=== PATIENT | female | born 1955 | race Two or more races ===

== ENCOUNTER 2020-12-11 09:00 | Inpatient (IN) | payer OTHER ==
[~2020-12-11] VITALS: Ht 160 cm; Wt 77.1 kg
[2020-12-11] MEDS ORDERED: DEXAMETHASONE SOD PHOS INJ 4 MG/ML VIAL IV ONE (09:45)
[2020-12-11] MEDS ORDERED: DEXAMETHASONE SOD PHOS INJ 4 MG/ML VIAL ONE (10:55)
[2020-12-11] MEDS ORDERED: ACETAMINOPHEN 325 MG TAB ONE (10:56)
[2020-12-11] MEDS: ACETAMINOPHEN 325 MG TAB PO PRN (11:04)
[2020-12-11] MEDS ORDERED: BENZONATATE 100 MG CAP PO PRN (11:45)
[2020-12-11] MEDS ORDERED: GUAIFENESIN/DEXTROMETHORPHAN LIQD 5 ML UDC NG PRN (11:45)
[2020-12-11] MEDS ORDERED: DOCUSATE SODIUM 100 MG CAP PO PRN (11:45)
[2020-12-11] MEDS ORDERED: MIDAZOLAM HCL 2 MG/2 ML VIAL ONE (11:59)
[2020-12-11] MEDS ORDERED: VECURONIUM BROMIDE FOR INJ 20 MG VIAL ONE (11:59)
[2020-12-11] MEDS ORDERED: WATER STERILE 10 ML VIAL ONE (11:59)
[2020-12-11] MEDS ORDERED: ETOMIDATE 2 MG/ML 10 ML INJ IV ONE (11:59)
[2020-12-11] MEDS ORDERED: SUCCINYLCHOLINE CHLORIDE 20 MG/ML 10ML VIAL ONE (11:59)
[2020-12-11 16:42] VITALS: BP 147/77
[2020-12-11] MEDS: ASCORBIC ACID 500 MG TAB PO SCH (17:09)
[2020-12-11] MEDS ORDERED: CEFTRIAXONE 1 GM VIAL IM SCH (17:45)
[2020-12-11] MEDS ORDERED: SODIUM CHLORIDE 0.9% 50ML 50 ML ONE (18:11)
[2020-12-11 18:38] VITALS: BP 147/82
[2020-12-11 18:39] VITALS: BP 147/82
[2020-12-11] MEDS ORDERED: GUAIFENESIN/CODEINE 10 ML CUP NG PRN (18:45)
[2020-12-11 18:58] VITALS: BP 147/82
[2020-12-11] MEDS ORDERED: REMDESIVIR 200MG 200 MG IV ONE (20:00)
[2020-12-11 20:02] VITALS: BP 154/82
[2020-12-11] MEDS ORDERED: ZOLPIDEM TARTRATE 5 MG TAB PO PRN (21:00)
[2020-12-11] MEDS: INSULIN REGULAR, HUMAN 100 UNIT/1 ML SQ SCH (21:00)
[2020-12-11] MEDS ORDERED: INSULIN GLARGINE 100 UNITS/ML VIAL SQ SCH (21:00)
[2020-12-11] MEDS: ENOXAPARIN 30 MG/0.3 ML SYR SC SCH (21:09)
[2020-12-11 22:47] VITALS: BP 150/82
[2020-12-12] VITALS (7 sets, daily range): BP systolic 104–148; BP diastolic 67–79
[2020-12-12 05:37] LABS: HEMATOCRIT 38.7 % (34.2-44.1); HEMOGLOBIN 12.8 g/dL (12.0-16.0); LYMPHOCYTES # (AUTO) 0.7 (1.0-3.2); LYMPHOCYTES % 29.1 % (18.0-39.1); MEAN CORPUSCULAR HEMOGLOBIN 25.2 pg (28-32); MEAN CORPUSCULAR HGB CONC 33.1 g/dL (31-35); MEAN CORPUSCULAR VOLUME 76.3 fL (81-99); MONOCYTES # (AUTO) 0.2 (0.2-0.8); MONOCYTES % 8.3 % (4.4-11.3); NEUTROPHILS # (AUTO) 1.6 (2.1-6.9); NEUTROPHILS % 62.2 % (38.7-80.0); PLATELET COUNT 210 x10e3/uL (140-360); RED BLOOD COUNT 5.07 x10e6/uL (3.6-5.1); RED CELL DISTRIBUTION WIDTH 13.6 % (11.7-14.4)
[2020-12-12 06:44] LABS: ANION GAP 17.2 mmol/L (8-16); CALCIUM 8.4 mg/dL (8.4-10.2); CREATININE, SERUM 0.73 mg/dL (0.57-1.11); MAGNESIUM 2.2 MG/DL (1.3-2.1); PHOSPHORUS 3.3 MG/DL (2.3-4.7); POTASSIUM 3.2 mmol/L (3.5-5.1)
[2020-12-12 07:34] LABS: BILIRUBIN,DIRECT 0.2 mg/dL (0.0-0.5)
[2020-12-12] MEDS: INSULIN REGULAR, HUMAN 100 UNIT/1 ML SQ SCH ×4 (08:18→21:00)
[2020-12-12] MEDS ORDERED: ASCORBIC ACID 500 MG TAB PO SCH (09:00)
[2020-12-12] MEDS ORDERED: ZINC SULFATE 220 MG CAP PO SCH (09:00)
[2020-12-12] MEDS: DEXAMETHASONE SOD PHOS 10 MG/1 ML VIAL IV SCH (09:04)
[2020-12-12] MEDS: CEFTRIAXONE 2 GM in SODIUM CHLORIDE 0.9% 100 ML IV SCH (09:04)
[2020-12-12] MEDS: ASCORBIC ACID 500 MG TAB PO SCH ×2 (09:05→17:07)
[2020-12-12] MEDS: ZINC SULFATE 220 MG CAP PO SCH (09:05)
[2020-12-12] MEDS: ENOXAPARIN 30 MG/0.3 ML SYR SC SCH ×2 (09:05→21:21)
[2020-12-12] MEDS: LOSARTAN POTASSIUM 25 MG TAB PO SCH (09:05)
[2020-12-12 09:12] LABS: LYMPHOCYTES % (MANUAL) 24 % (19-48); MONOCYTES % (MANUAL) 9 % (3.4-9.0); NEUTROPHILS % (MANUAL) 66 % (40-74)
[2020-12-12 09:13] LABS: PLATELET ESTIMATE ADEQUATE; PLATELET MORPHOLOGY COMMENT NORMAL; RBC MORPHOLOGY COMMENT NORMAL
[2020-12-12] MEDS: INSULIN LISPRO 100 UNIT/1 ML 3ML VIAL SQ SCH ×3 (11:44→21:00)
[2020-12-12] MEDS: ACETAMINOPHEN 325 MG TAB PO PRN ×2 (13:25→23:09)
[2020-12-12] MEDS: REMDESIVIR 100MG 100 MG IV SCH (13:54)
[2020-12-12] MEDS: INSULIN GLARGINE 100 UNITS/ML VIAL SQ SCH (21:25)
[2020-12-13] VITALS (9 sets, daily range): BP systolic 134–172; BP diastolic 71–91
[2020-12-13 07:08] LABS: BASOPHILS % 0.1 % (0.0-1.0); HEMATOCRIT 40.2 % (34.2-44.1); HEMOGLOBIN 13.1 g/dL (12.0-16.0); LYMPHOCYTES # (AUTO) 1.1 (1.0-3.2); LYMPHOCYTES % 13.5 % (18.0-39.1); MEAN CORPUSCULAR HEMOGLOBIN 25.2 pg (28-32); MEAN CORPUSCULAR HGB CONC 32.6 g/dL (31-35); MEAN CORPUSCULAR VOLUME 77.5 fL (81-99); MONOCYTES # (AUTO) 0.5 (0.2-0.8); MONOCYTES % 5.7 % (4.4-11.3); NEUTROPHILS # (AUTO) 6.8 (2.1-6.9); NEUTROPHILS % 80.2 % (38.7-80.0); PLATELET COUNT 239 x10e3/uL (140-360); RED BLOOD COUNT 5.19 x10e6/uL (3.6-5.1)
[2020-12-13 07:29] LABS: ALBUMIN 2.8 g/dL (3.5-5.0); ALBUMIN/GLOBULIN RATIO 0.8 (0.8-2.0); ANION GAP 16.1 mmol/L (8-16); CALCIUM 8.3 mg/dL (8.4-10.2); CREATININE, SERUM 0.68 mg/dL (0.57-1.11); POTASSIUM 3.1 mmol/L (3.5-5.1)
[2020-12-13 07:55] LABS: MAGNESIUM 2.1 MG/DL (1.3-2.1); PHOSPHORUS 2.9 MG/DL (2.3-4.7)
[2020-12-13] MEDS: INSULIN LISPRO 100 UNIT/1 ML 3ML VIAL SQ SCH ×4 (08:02→21:00)
[2020-12-13] MEDS: INSULIN REGULAR, HUMAN 100 UNIT/1 ML SQ SCH ×4 (08:03→21:06)
[2020-12-13] MEDS: DEXAMETHASONE SOD PHOS 10 MG/1 ML VIAL IV SCH (09:51)
[2020-12-13] MEDS: LOSARTAN POTASSIUM 25 MG TAB PO SCH (09:51)
[2020-12-13] MEDS: CEFTRIAXONE 2 GM in SODIUM CHLORIDE 0.9% 100 ML IV SCH (09:51)
[2020-12-13] MEDS: ENOXAPARIN 30 MG/0.3 ML SYR SC SCH ×2 (09:52→21:08)
[2020-12-13] MEDS: ASCORBIC ACID 500 MG TAB PO SCH ×2 (09:52→17:12)
[2020-12-13] MEDS: ZINC SULFATE 220 MG CAP PO SCH (09:52)
[2020-12-13] MEDS ORDERED: POTASSIUM CHLORIDE 20 MEQ TAB CR PO ONE (12:14)
[2020-12-13] MEDS: REMDESIVIR 100MG 100 MG IV SCH (14:11)
[2020-12-13 15:14] LABS: FERRITIN 179.81 ng/mL (4.63-204.00)
[2020-12-13] MEDS: DEXTROSE 50% SYRINGE 50 ML IV PRN (15:55)
[2020-12-13] MEDS: ACETAMINOPHEN 325 MG TAB PO PRN (19:04)
[2020-12-13] MEDS: INSULIN GLARGINE 100 UNITS/ML VIAL SQ SCH (21:06)
[2020-12-14] VITALS (8 sets, daily range): BP systolic 147–163; BP diastolic 78–92
[2020-12-14] MEDS: INSULIN REGULAR, HUMAN 100 UNIT/1 ML SQ SCH ×5 (07:30→21:48)
[2020-12-14] MEDS: INSULIN LISPRO 100 UNIT/1 ML 3ML VIAL SQ SCH ×4 (07:30→19:32)
[2020-12-14] MEDS ORDERED: SODIUM CHLORIDE 0.9% 100 ML ONE (07:33)
[2020-12-14] MEDS: DEXAMETHASONE SOD PHOS 10 MG/1 ML VIAL IV SCH (09:42)
[2020-12-14] MEDS: ENOXAPARIN 30 MG/0.3 ML SYR SC SCH ×2 (09:43→21:42)
[2020-12-14] MEDS: ASCORBIC ACID 500 MG TAB PO SCH ×2 (09:43→16:33)
[2020-12-14] MEDS: ZINC SULFATE 220 MG CAP PO SCH (09:43)
[2020-12-14] MEDS: LOSARTAN POTASSIUM 25 MG TAB PO SCH (09:43)
[2020-12-14] MEDS: CEFTRIAXONE 2 GM in SODIUM CHLORIDE 0.9% 100 ML IV SCH (09:43)
[2020-12-14 10:06] LABS: ALBUMIN 2.7 g/dL (3.5-5.0); ALBUMIN/GLOBULIN RATIO 0.8 (0.8-2.0); ANION GAP 14.2 mmol/L (8-16); CREATININE, SERUM 0.59 mg/dL (0.57-1.11); POTASSIUM 3.2 mmol/L (3.5-5.1)
[2020-12-14] MEDS: ONDANSETRON HCL INJ 2MG/ML 2ML 2 MG/ML VIAL IV PRN (10:24)
[2020-12-14] MEDS: REMDESIVIR 100MG 100 MG IV SCH (13:17)
[2020-12-14] MEDS ORDERED: POTASSIUM CHLORIDE 20 MEQ TAB CR PO ONE (14:00)
[2020-12-14] MEDS: ACETAMINOPHEN 325 MG TAB PO PRN (18:11)
[2020-12-14] MEDS: INSULIN GLARGINE 100 UNITS/ML VIAL SQ SCH (21:43)
[2020-12-15] VITALS (8 sets, daily range): BP systolic 111–171; BP diastolic 69–91
[2020-12-15] MEDS: INSULIN LISPRO 100 UNIT/1 ML 3ML VIAL SQ SCH ×4 (07:30→21:31)
[2020-12-15] MEDS: ASCORBIC ACID 500 MG TAB PO SCH ×2 (08:48→17:16)
[2020-12-15] MEDS: CEFTRIAXONE 2 GM in SODIUM CHLORIDE 0.9% 100 ML IV SCH (08:48)
[2020-12-15] MEDS: LOSARTAN POTASSIUM 25 MG TAB PO SCH (08:48)
[2020-12-15] MEDS: DEXAMETHASONE SOD PHOS 10 MG/1 ML VIAL IV SCH (08:48)
[2020-12-15] MEDS: ENOXAPARIN 30 MG/0.3 ML SYR SC SCH ×2 (08:49→21:20)
[2020-12-15] MEDS: ZINC SULFATE 220 MG CAP PO SCH (08:49)
[2020-12-15 10:13] LABS: ALBUMIN 2.8 g/dL (3.5-5.0); ALBUMIN/GLOBULIN RATIO 0.8 (0.8-2.0); ANION GAP 15.6 mmol/L (8-16); CREATININE, SERUM 0.6 mg/dL (0.57-1.11); POTASSIUM 3.6 mmol/L (3.5-5.1)
[2020-12-15] MEDS: INSULIN REGULAR, HUMAN 100 UNIT/1 ML SQ SCH ×3 (11:30→21:33)
[2020-12-15] MEDS ORDERED: SODIUM CHLORIDE 0.9% 100 ML ONE (15:35)
[2020-12-15] MEDS ORDERED: IOPAMIDOL 370 MG/ML 200 ML INFUS..BTL INJ ONE (15:35)
[2020-12-15] MEDS: REMDESIVIR 100MG 100 MG IV SCH (16:07)
[2020-12-15] MEDS: INSULIN GLARGINE 100 UNITS/ML VIAL SQ SCH (21:35)
[2020-12-16] VITALS (8 sets, daily range): BP systolic 134–171; BP diastolic 62–87
[2020-12-16] MEDS ORDERED: LORAZEPAM INJ 2 MG/ML VIAL IV ONE ×2 (01:00→22:15)
[2020-12-16] MEDS: INSULIN LISPRO 100 UNIT/1 ML 3ML VIAL SQ SCH ×4 (07:30→20:22)
[2020-12-16] MEDS: INSULIN REGULAR, HUMAN 100 UNIT/1 ML SQ SCH ×4 (07:30→20:25)
[2020-12-16] MEDS: CEFTRIAXONE 2 GM in SODIUM CHLORIDE 0.9% 100 ML IV SCH (09:33)
[2020-12-16] MEDS: DEXAMETHASONE SOD PHOS 10 MG/1 ML VIAL IV SCH (09:33)
[2020-12-16] MEDS: LOSARTAN POTASSIUM 25 MG TAB PO SCH (09:34)
[2020-12-16] MEDS: ZINC SULFATE 220 MG CAP PO SCH (09:34)
[2020-12-16] MEDS: ASCORBIC ACID 500 MG TAB PO SCH ×2 (09:34→17:00)
[2020-12-16] MEDS: ENOXAPARIN 30 MG/0.3 ML SYR SC SCH ×2 (09:34→20:22)
[2020-12-16 09:47] LABS: ALBUMIN 2.5 g/dL (3.5-5.0); ALBUMIN/GLOBULIN RATIO 0.8 (0.8-2.0); ANION GAP 13.6 mmol/L (8-16); CALCIUM 7.9 mg/dL (8.4-10.2); CREATININE, SERUM 0.56 mg/dL (0.57-1.11); POTASSIUM 3.6 mmol/L (3.5-5.1)
[2020-12-16] MEDS: INSULIN GLARGINE 100 UNITS/ML VIAL SQ SCH (20:24)
[2020-12-17] VITALS (8 sets, daily range): BP systolic 129–155; BP diastolic 64–88
[2020-12-17] MEDS: INSULIN LISPRO 100 UNIT/1 ML 3ML VIAL SQ SCH ×4 (07:30→20:31)
[2020-12-17] MEDS: INSULIN REGULAR, HUMAN 100 UNIT/1 ML SQ SCH ×4 (07:30→20:31)
[2020-12-17] MEDS: LOSARTAN POTASSIUM 25 MG TAB PO SCH (09:00)
[2020-12-17] MEDS ORDERED: BARICITINIB 2 MG TABLET PO SCH (09:00)
[2020-12-17] MEDS: ZINC SULFATE 220 MG CAP PO SCH (09:00)
[2020-12-17] MEDS: ASCORBIC ACID 500 MG TAB PO SCH ×2 (09:00→16:45)
[2020-12-17] MEDS: DEXAMETHASONE SOD PHOS 10 MG/1 ML VIAL IV SCH (09:30)
[2020-12-17] MEDS: ENOXAPARIN 30 MG/0.3 ML SYR SC SCH ×2 (09:30→20:29)
[2020-12-17 09:32] LABS: ALBUMIN 2.7 g/dL (3.5-5.0); ALBUMIN/GLOBULIN RATIO 0.8 (0.8-2.0); ANION GAP 14.5 mmol/L (8-16); CALCIUM 8.3 mg/dL (8.4-10.2); CREATININE, SERUM 0.6 mg/dL (0.57-1.11); POTASSIUM 3.5 mmol/L (3.5-5.1)
[2020-12-17] MEDS ORDERED: LORAZEPAM INJ 2 MG/ML VIAL IV PRN (11:15)
[2020-12-17] MEDS: CLONIDINE HCL 0.2 MG/24 HR 1 EA PATCH TOP SCH (14:19)
[2020-12-17] MEDS: BARICITINIB 2 MG TABLET PO SCH (16:45)
[2020-12-17] MEDS: ACETAMINOPHEN 325 MG TAB PO PRN (18:12)
[2020-12-17] MEDS: INSULIN GLARGINE 100 UNITS/ML VIAL SQ SCH (20:33)
[2020-12-18] VITALS (8 sets, daily range): BP systolic 151–183; BP diastolic 72–94
[2020-12-18 05:39] LABS: BASOPHILS % 0.2 % (0.0-1.0); HEMATOCRIT 37.5 % (34.2-44.1); HEMOGLOBIN 12.2 g/dL (12.0-16.0); LYMPHOCYTES # (AUTO) 1.1 (1.0-3.2); LYMPHOCYTES % 17.3 % (18.0-39.1); MEAN CORPUSCULAR HEMOGLOBIN 25.2 pg (28-32); MEAN CORPUSCULAR HGB CONC 32.5 g/dL (31-35); MEAN CORPUSCULAR VOLUME 77.3 fL (81-99); MONOCYTES # (AUTO) 0.3 (0.2-0.8); MONOCYTES % 4.7 % (4.4-11.3); NEUTROPHILS # (AUTO) 4.8 (2.1-6.9); NEUTROPHILS % 74.5 % (38.7-80.0); PLATELET COUNT 342 x10e3/uL (140-360); RED BLOOD COUNT 4.85 x10e6/uL (3.6-5.1); RED CELL DISTRIBUTION WIDTH 14.3 % (11.7-14.4)
[2020-12-18 05:56] LABS: ANION GAP 14.4 mmol/L (8-16); CREATININE, SERUM 0.6 mg/dL (0.57-1.11); POTASSIUM 3.4 mmol/L (3.5-5.1)
[2020-12-18 06:29] LABS: ALBUMIN 2.4 g/dL (3.5-5.0); BILIRUBIN,DIRECT 0.4 mg/dL (0.0-0.5); PHOSPHORUS 3.2 MG/DL (2.3-4.7)
[2020-12-18 07:17] LABS: ALBUMIN 2.3 g/dL (3.5-5.0); ALBUMIN/GLOBULIN RATIO 0.6 (0.8-2.0); ANION GAP 13.5 mmol/L (8-16); CREATININE, SERUM 0.61 mg/dL (0.57-1.11); POTASSIUM 3.5 mmol/L (3.5-5.1)
[2020-12-18] MEDS: INSULIN LISPRO 100 UNIT/1 ML 3ML VIAL SQ SCH ×4 (07:30→20:21)
[2020-12-18] MEDS: DEXAMETHASONE SOD PHOS 10 MG/1 ML VIAL IV SCH (09:26)
[2020-12-18] MEDS: ASCORBIC ACID 500 MG TAB PO SCH ×2 (09:27→16:54)
[2020-12-18] MEDS: ZINC SULFATE 220 MG CAP PO SCH (09:27)
[2020-12-18] MEDS: ENOXAPARIN 30 MG/0.3 ML SYR SC SCH (09:27)
[2020-12-18] MEDS: LOSARTAN POTASSIUM 25 MG TAB PO SCH (09:27)
[2020-12-18] MEDS: BARICITINIB 2 MG TABLET PO SCH (09:27)
[2020-12-18] MEDS: INSULIN REGULAR, HUMAN 100 UNIT/1 ML SQ SCH ×4 (11:30→20:20)
[2020-12-18] MEDS: PIPERACILLIN/TAZOBACTAM 3.375 GM in SODIUM CHLORIDE 0.9% 50ML 50 ML IV SCH ×2 (11:59→16:54)
[2020-12-18] MEDS: LABETALOL HCL 5 MG/ML 20ML VIAL IV PRN ×2 (12:20→17:06)
[2020-12-18] MEDS: ACETAMINOPHEN 325 MG TAB PO PRN (17:06)
[2020-12-18] MEDS: INSULIN GLARGINE 100 UNITS/ML VIAL SQ SCH (20:19)
[2020-12-19] VITALS (8 sets, daily range): BP systolic 127–165; BP diastolic 64–98
[2020-12-19] MEDS: PIPERACILLIN/TAZOBACTAM 3.375 GM in SODIUM CHLORIDE 0.9% 50ML 50 ML IV SCH ×5 (00:03→23:52)
[2020-12-19] MEDS: ACETAMINOPHEN 325 MG TAB PO PRN (06:01)
[2020-12-19] MEDS: INSULIN REGULAR, HUMAN 100 UNIT/1 ML SQ SCH ×4 (08:53→20:34)
[2020-12-19] MEDS: INSULIN LISPRO 100 UNIT/1 ML 3ML VIAL SQ SCH ×4 (08:53→20:34)
[2020-12-19] MEDS: BARICITINIB 2 MG TABLET PO SCH (08:54)
[2020-12-19] MEDS: ZINC SULFATE 220 MG CAP PO SCH (08:54)
[2020-12-19] MEDS: LOSARTAN POTASSIUM 25 MG TAB PO SCH (08:54)
[2020-12-19] MEDS: ASCORBIC ACID 500 MG TAB PO SCH ×2 (08:54→17:07)
[2020-12-19] MEDS: INSULIN GLARGINE 100 UNITS/ML VIAL SQ SCH (20:33)
[2020-12-19] MEDS: DEXTROSE 50% SYRINGE 50 ML IV PRN (20:37)
[2020-12-19] MEDS: ENOXAPARIN 30 MG/0.3 ML SYR SC SCH (21:35)
[2020-12-20] VITALS (7 sets, daily range): BP systolic 134–181; BP diastolic 61–91
[2020-12-20] MEDS: LABETALOL HCL 5 MG/ML 20ML VIAL IV PRN (00:36)
[2020-12-20] MEDS: PIPERACILLIN/TAZOBACTAM 3.375 GM in SODIUM CHLORIDE 0.9% 50ML 50 ML IV SCH ×3 (06:30→17:27)
[2020-12-20] MEDS: INSULIN LISPRO 100 UNIT/1 ML 3ML VIAL SQ SCH ×4 (07:30→21:00)
[2020-12-20] MEDS: INSULIN REGULAR, HUMAN 100 UNIT/1 ML SQ SCH ×4 (07:30→21:00)
[2020-12-20] MEDS: DEXAMETHASONE 4 MG TAB PO SCH (08:52)
[2020-12-20] MEDS: LOSARTAN POTASSIUM 25 MG TAB PO SCH (08:53)
[2020-12-20] MEDS: BARICITINIB 2 MG TABLET PO SCH (08:53)
[2020-12-20] MEDS: ENOXAPARIN 30 MG/0.3 ML SYR SC SCH ×2 (08:53→21:41)
[2020-12-20] MEDS: ZINC SULFATE 220 MG CAP PO SCH (08:53)
[2020-12-20] MEDS: ASCORBIC ACID 500 MG TAB PO SCH ×2 (08:53→17:27)
[2020-12-20 10:19] LABS: BASOPHILS % 0.2 % (0.0-1.0); EOSINOPHILS % 0.2 % (0.0-6.0); HEMATOCRIT 38.8 % (34.2-44.1); HEMOGLOBIN 12.5 g/dL (12.0-16.0); LYMPHOCYTES # (AUTO) 0.5 (1.0-3.2); LYMPHOCYTES % 3.9 % (18.0-39.1); MEAN CORPUSCULAR HEMOGLOBIN 25.4 pg (28-32); MEAN CORPUSCULAR HGB CONC 32.2 g/dL (31-35); MEAN CORPUSCULAR VOLUME 78.9 fL (81-99); MONOCYTES # (AUTO) 0.2 (0.2-0.8); MONOCYTES % 1.8 % (4.4-11.3); NEUTROPHILS # (AUTO) 11.6 (2.1-6.9); NEUTROPHILS % 92.4 % (38.7-80.0); PLATELET COUNT 281 x10e3/uL (140-360); RED BLOOD COUNT 4.92 x10e6/uL (3.6-5.1); RED CELL DISTRIBUTION WIDTH 14.6 % (11.7-14.4)
[2020-12-20 10:35] LABS: ANION GAP 16.3 mmol/L (8-16); CALCIUM 8.1 mg/dL (8.4-10.2); CREATININE, SERUM 0.67 mg/dL (0.57-1.11); POTASSIUM 3.3 mmol/L (3.5-5.1)
[2020-12-20] MEDS: VENLAFAXINE HCL 37.5 MG TAB PO SCH (16:17)
[2020-12-20] MEDS ORDERED: FUROSEMIDE INJ 10 MG/ML 2 ML VIAL IV ONE (20:30)
[2020-12-21] VITALS (9 sets, daily range): BP systolic 137–165; BP diastolic 63–83
[2020-12-21] MEDS: PIPERACILLIN/TAZOBACTAM 3.375 GM in SODIUM CHLORIDE 0.9% 50ML 50 ML IV SCH ×6 (06:23→23:55)
[2020-12-21] MEDS: INSULIN REGULAR, HUMAN 100 UNIT/1 ML SQ SCH ×4 (07:14→21:00)
[2020-12-21] MEDS: INSULIN LISPRO 100 UNIT/1 ML 3ML VIAL SQ SCH ×4 (07:15→21:00)
[2020-12-21] MEDS: BARICITINIB 2 MG TABLET PO SCH (07:45)
[2020-12-21] MEDS: ZINC SULFATE 220 MG CAP PO SCH (07:45)
[2020-12-21] MEDS: ENOXAPARIN 30 MG/0.3 ML SYR SC SCH ×2 (07:45→21:45)
[2020-12-21] MEDS: DEXAMETHASONE 4 MG TAB PO SCH (07:45)
[2020-12-21] MEDS: ASCORBIC ACID 500 MG TAB PO SCH ×2 (07:45→17:27)
[2020-12-21] MEDS: VENLAFAXINE HCL 37.5 MG TAB PO SCH ×2 (07:45→17:27)
[2020-12-21] MEDS: LOSARTAN POTASSIUM 25 MG TAB PO SCH (07:45)
[2020-12-21] MEDS: ONDANSETRON HCL INJ 2MG/ML 2ML 2 MG/ML VIAL IV PRN (10:04)
[2020-12-22] VITALS (16 sets, daily range): BP systolic 132–197; BP diastolic 61–92
[2020-12-22] MEDS: PIPERACILLIN/TAZOBACTAM 3.375 GM in SODIUM CHLORIDE 0.9% 50ML 50 ML IV SCH ×4 (06:00→23:35)
[2020-12-22 06:31] LABS: BASOPHILS % 0.1 % (0.0-1.0); HEMATOCRIT 34.3 % (34.2-44.1); HEMOGLOBIN 11.5 g/dL (12.0-16.0); LYMPHOCYTES # (AUTO) 0.6 (1.0-3.2); LYMPHOCYTES % 4.2 % (18.0-39.1); MEAN CORPUSCULAR HEMOGLOBIN 25.7 pg (28-32); MEAN CORPUSCULAR HGB CONC 33.5 g/dL (31-35); MEAN CORPUSCULAR VOLUME 76.7 fL (81-99); MONOCYTES # (AUTO) 0.4 (0.2-0.8); MONOCYTES % 3.1 % (4.4-11.3); NEUTROPHILS # (AUTO) 12.3 (2.1-6.9); NEUTROPHILS % 91.1 % (38.7-80.0); PLATELET COUNT 286 x10e3/uL (140-360); RED BLOOD COUNT 4.47 x10e6/uL (3.6-5.1); RED CELL DISTRIBUTION WIDTH 13.9 % (11.7-14.4)
[2020-12-22] MEDS: INSULIN REGULAR, HUMAN 100 UNIT/1 ML SQ SCH ×4 (07:30→20:43)
[2020-12-22] MEDS: INSULIN LISPRO 100 UNIT/1 ML 3ML VIAL SQ SCH ×4 (07:30→20:43)
[2020-12-22 08:47] LABS: ANION GAP 13.4 mmol/L (8-16); CALCIUM 8.3 mg/dL (8.4-10.2); CREATININE, SERUM 0.59 mg/dL (0.57-1.11); POTASSIUM 3.4 mmol/L (3.5-5.1)
[2020-12-22] MEDS: BARICITINIB 2 MG TABLET PO SCH (10:01)
[2020-12-22] MEDS: LOSARTAN POTASSIUM 25 MG TAB PO SCH (10:01)
[2020-12-22] MEDS: ZINC SULFATE 220 MG CAP PO SCH (10:01)
[2020-12-22] MEDS: ASCORBIC ACID 500 MG TAB PO SCH ×2 (10:01→16:49)
[2020-12-22] MEDS: DEXAMETHASONE 4 MG TAB PO SCH (10:01)
[2020-12-22] MEDS: ENOXAPARIN 30 MG/0.3 ML SYR SC SCH ×2 (10:01→20:42)
[2020-12-22] MEDS: VENLAFAXINE HCL 37.5 MG TAB PO SCH ×2 (10:01→16:49)
[2020-12-22 15:37] LABS: ABG HCO3 31 mmol/L (22-26); ABG PCO2 42 mmHg (35-45); ABG PH 7.47 (7.35-7.45); ABG PO2 52 mmHg (80-105); ABG TCO2 32
[2020-12-22] MEDS ORDERED: DEXTROSE 5%/0.9% SOD CHL 1,000 ML IV ONE (16:30)
[2020-12-22] MEDS ORDERED: ALTEPLASE RECOMBINANT 2 MG/2 ML VIAL IV PRN (17:15)
[2020-12-22] MEDS ORDERED: DEXTROSE 50% SYRINGE 50 ML IV ONE (20:39)
[2020-12-22] MEDS: LABETALOL HCL 5 MG/ML 20ML VIAL IV PRN (22:33)
[2020-12-22] MEDS: ACETAMINOPHEN 325 MG TAB PO PRN (23:35)
[2020-12-23] VITALS (25 sets, daily range): BP systolic 109–170; BP diastolic 61–120
[2020-12-23] MEDS: PIPERACILLIN/TAZOBACTAM 3.375 GM in SODIUM CHLORIDE 0.9% 50ML 50 ML IV SCH ×2 (05:34→13:19)
[2020-12-23 05:36] LABS: BASOPHILS % 0.1 % (0.0-1.0); HEMATOCRIT 29.4 % (34.2-44.1); HEMOGLOBIN 9.5 g/dL (12.0-16.0); LYMPHOCYTES # (AUTO) 0.4 (1.0-3.2); LYMPHOCYTES % 2.7 % (18.0-39.1); MEAN CORPUSCULAR HEMOGLOBIN 25.3 pg (28-32); MEAN CORPUSCULAR HGB CONC 32.3 g/dL (31-35); MEAN CORPUSCULAR VOLUME 78.2 fL (81-99); MONOCYTES # (AUTO) 0.4 (0.2-0.8); NEUTROPHILS # (AUTO) 13.8 (2.1-6.9); NEUTROPHILS % 93.1 % (38.7-80.0); PLATELET COUNT 208 x10e3/uL (140-360); RED BLOOD COUNT 3.76 x10e6/uL (3.6-5.1); RED CELL DISTRIBUTION WIDTH 14.2 % (11.7-14.4)
[2020-12-23 07:04] LABS: ALBUMIN 1.5 g/dL (3.5-5.0); ALBUMIN/GLOBULIN RATIO 0.4 (0.8-2.0); ANION GAP 13.3 mmol/L (8-16); CALCIUM 7.6 mg/dL (8.4-10.2); CREATININE, SERUM 0.61 mg/dL (0.57-1.11); POTASSIUM 3.3 mmol/L (3.5-5.1)
[2020-12-23] MEDS: INSULIN LISPRO 100 UNIT/1 ML 3ML VIAL SQ SCH ×4 (07:30→21:00)
[2020-12-23] MEDS: INSULIN REGULAR, HUMAN 100 UNIT/1 ML SQ SCH (07:30)
[2020-12-23] MEDS: DEXAMETHASONE 4 MG TAB PO SCH (07:42)
[2020-12-23] MEDS: VENLAFAXINE HCL 37.5 MG TAB PO SCH ×2 (09:00→17:16)
[2020-12-23] MEDS: LOSARTAN POTASSIUM 25 MG TAB PO SCH (09:25)
[2020-12-23] MEDS: BARICITINIB 2 MG TABLET PO SCH (09:26)
[2020-12-23] MEDS: ZINC SULFATE 220 MG CAP PO SCH (09:26)
[2020-12-23] MEDS: ASCORBIC ACID 500 MG TAB PO SCH ×2 (09:26→17:16)
[2020-12-23] MEDS: ENOXAPARIN 30 MG/0.3 ML SYR SC SCH ×2 (09:27→21:00)
[2020-12-23] MEDS ORDERED: DEXTROSE 50% SYRINGE 50 ML IV PRN (09:45)
[2020-12-24] VITALS (25 sets, daily range): BP systolic 116–178; BP diastolic 63–97
[2020-12-24] MEDS ORDERED: DEXMEDETOMIDINE 100 ML IV PRN (06:45)
[2020-12-24] MEDS ORDERED: FUROSEMIDE INJ 10 MG/ML 2 ML VIAL IV ONE (07:20)
[2020-12-24] MEDS: INSULIN LISPRO 100 UNIT/1 ML 3ML VIAL SQ SCH ×4 (07:30→21:41)
[2020-12-24 08:05] LABS: BASOPHILS # (AUTO) 0.1 (0.0-0.1); BASOPHILS % 0.2 % (0.0-1.0); HEMATOCRIT 36.5 % (34.2-44.1); HEMOGLOBIN 11.9 g/dL (12.0-16.0); LYMPHOCYTES # (AUTO) 0.6 (1.0-3.2); LYMPHOCYTES % 2.5 % (18.0-39.1); MEAN CORPUSCULAR HEMOGLOBIN 25.6 pg (28-32); MEAN CORPUSCULAR HGB CONC 32.6 g/dL (31-35); MEAN CORPUSCULAR VOLUME 78.5 fL (81-99); MONOCYTES # (AUTO) 0.5 (0.2-0.8); NEUTROPHILS # (AUTO) 23.6 (2.1-6.9); NEUTROPHILS % 93.9 % (38.7-80.0); PLATELET COUNT 244 x10e3/uL (140-360); RED BLOOD COUNT 4.65 x10e6/uL (3.6-5.1); RED CELL DISTRIBUTION WIDTH 14.3 % (11.7-14.4)
[2020-12-24 08:22] LABS: ANION GAP 15.7 mmol/L (8-16); CALCIUM 8.1 mg/dL (8.4-10.2); CREATININE, SERUM 0.52 mg/dL (0.57-1.11); POTASSIUM 3.7 mmol/L (3.5-5.1)
[2020-12-24 08:38] LABS: ABG HCO3 28 mmol/L (22-26); ABG PCO2 39 mmHg (35-45); ABG PH 7.46 (7.35-7.45); ABG PO2 48 mmHg (80-105); ABG TCO2 29
[2020-12-24] MEDS: DEXAMETHASONE 4 MG TAB PO SCH (08:48)
[2020-12-24] MEDS: ZINC SULFATE 220 MG CAP PO SCH (09:11)
[2020-12-24] MEDS: LOSARTAN POTASSIUM 25 MG TAB PO SCH (09:11)
[2020-12-24] MEDS: BARICITINIB 2 MG TABLET PO SCH (09:11)
[2020-12-24] MEDS: VENLAFAXINE HCL 37.5 MG TAB PO SCH ×2 (09:11→17:56)
[2020-12-24] MEDS: ENOXAPARIN 30 MG/0.3 ML SYR SC SCH ×2 (09:11→21:39)
[2020-12-24] MEDS: ASCORBIC ACID 500 MG TAB PO SCH ×2 (09:11→17:56)
[2020-12-24 09:14] LABS: LYMPHOCYTES % (MANUAL) 3 % (19-48); MONOCYTES % (MANUAL) 1 % (3.4-9.0); NEUTROPHILS % (MANUAL) 96 % (40-74)
[2020-12-24 09:15] LABS: PLATELET ESTIMATE ADEQUATE; PLATELET MORPHOLOGY COMMENT NORMAL; RBC MORPHOLOGY COMMENT NORMAL
[2020-12-24] MEDS: CLONIDINE HCL 0.2 MG/24 HR 1 EA PATCH TOP SCH (12:50)
[2020-12-25] VITALS (23 sets, daily range): BP systolic 81–208; BP diastolic 43–109
[2020-12-25] MEDS ORDERED: Vancomycin IV 1 GM in SODIUM CHLORIDE 0.9% 250ML 250 ML IV ONE (01:15)
[2020-12-25 01:25] LABS: ABG PCO2 45 mmHg (35-45); ABG PH 7.45 (7.35-7.45)
[2020-12-25 01:26] LABS: ABG HCO3 31 mmol/L (22-26); ABG PO2 46 mmHg (80-105); ABG TCO2 33
[2020-12-25] MEDS: FENTANYL 2000MCG/NS 250 250 ML IV SCH ×4 (01:45→16:35)
[2020-12-25] MEDS ORDERED: PIPERACILLIN/TAZO 4.5 GM 100 ML IV ONE (03:30)
[2020-12-25] MEDS: PIPERACILLIN/TAZOBACTAM 4.5 GM in SODIUM CHLORIDE 0.9% 100 ML IV SCH ×3 (04:34→18:00)
[2020-12-25 06:34] LABS: BASOPHILS % 0.1 % (0.0-1.0); EOSINOPHILS % 0.1 % (0.0-6.0); HEMATOCRIT 33.9 % (34.2-44.1); HEMOGLOBIN 10.9 g/dL (12.0-16.0); LYMPHOCYTES # (AUTO) 0.6 (1.0-3.2); MEAN CORPUSCULAR HEMOGLOBIN 25.6 pg (28-32); MEAN CORPUSCULAR HGB CONC 32.2 g/dL (31-35); MEAN CORPUSCULAR VOLUME 79.6 fL (81-99); MONOCYTES # (AUTO) 0.4 (0.2-0.8); MONOCYTES % 2.1 % (4.4-11.3); NEUTROPHILS # (AUTO) 17.1 (2.1-6.9); NEUTROPHILS % 93.2 % (38.7-80.0); PLATELET COUNT 200 x10e3/uL (140-360); RED BLOOD COUNT 4.26 x10e6/uL (3.6-5.1); RED CELL DISTRIBUTION WIDTH 14.6 % (11.7-14.4)
[2020-12-25 07:00] LABS: ALBUMIN 1.5 g/dL (3.5-5.0); ALBUMIN/GLOBULIN RATIO 0.4 (0.8-2.0); ANION GAP 13.7 mmol/L (8-16); CALCIUM 7.9 mg/dL (8.4-10.2); CREATININE, SERUM 0.52 mg/dL (0.57-1.11); POTASSIUM 3.7 mmol/L (3.5-5.1)
[2020-12-25] MEDS: INSULIN LISPRO 100 UNIT/1 ML 3ML VIAL SQ SCH ×3 (07:30→16:28)
[2020-12-25] MEDS: DEXAMETHASONE 4 MG TAB PO SCH (07:30)
[2020-12-25 07:54] LABS: ABG HCO3 30 mmol/L (22-26); ABG PCO2 55 mmHg (35-45); ABG PH 7.34 (7.35-7.45); ABG PO2 65 mmHg (80-105); ABG TCO2 31
[2020-12-25] MEDS: ROCURONIUM 1250MG/NS 250 250 ML IV SCH ×3 (08:12→16:34)
[2020-12-25] MEDS: MIDAZOLAM HCL 5MG/ML 10ML VIAL 100 ML IV PRN ×3 (08:24→19:00)
[2020-12-25] MEDS: LABETALOL HCL 5 MG/ML 20ML VIAL IV PRN (08:49)
[2020-12-25] MEDS: SODIUM CHLORIDE 0.9% 1000ML 1,000 ML IV SCH ×2 (08:53→15:32)
[2020-12-25] MEDS: ASCORBIC ACID 500 MG TAB PO SCH ×2 (09:00→18:00)
[2020-12-25] MEDS: VENLAFAXINE HCL 37.5 MG TAB PO SCH ×2 (09:00→18:00)
[2020-12-25] MEDS: LOSARTAN POTASSIUM 25 MG TAB PO SCH (09:00)
[2020-12-25] MEDS: ZINC SULFATE 220 MG CAP PO SCH (09:00)
[2020-12-25 10:06] LABS: ABG HCO3 28 mmol/L (22-26); ABG PCO2 72 mmHg (35-45); ABG PH 7.19 (7.35-7.45); ABG PO2 120 mmHg (80-105); ABG TCO2 30
[2020-12-25] MEDS ORDERED: SODIUM BICARBONATE 8.4% INJ 50 ML SYR IV ONE (11:15)
[2020-12-25] MEDS ORDERED: CITRIC ACID/SODIUM CITRATE 30 ML UDC PO ONE (11:15)
[2020-12-25 14:24] LABS: ABG HCO3 26 mmol/L (22-26); ABG PCO2 79 mmHg (35-45); ABG PH 7.12 (7.35-7.45); ABG PO2 112 mmHg (80-105); ABG TCO2 28
[2020-12-25] MEDS: ENOXAPARIN 30 MG/0.3 ML SYR SC SCH ×2 (15:29→20:37)
[2020-12-26] VITALS (25 sets, daily range): BP systolic 102–147; BP diastolic 56–73
[2020-12-26] MEDS: FENTANYL 2000MCG/NS 250 250 ML IV SCH (02:00)
[2020-12-26] MEDS: PIPERACILLIN/TAZOBACTAM 4.5 GM in SODIUM CHLORIDE 0.9% 100 ML IV SCH ×3 (02:20→16:59)
[2020-12-26 06:21] LABS: BASOPHILS # (AUTO) 0.1 (0.0-0.1); BASOPHILS % 0.3 % (0.0-1.0); EOSINOPHILS # (AUTO) 0.2 (0.0-0.4); EOSINOPHILS % 0.9 % (0.0-6.0); HEMATOCRIT 39.1 % (34.2-44.1); HEMOGLOBIN 11.8 g/dL (12.0-16.0); LYMPHOCYTES # (AUTO) 0.6 (1.0-3.2); LYMPHOCYTES % 2.9 % (18.0-39.1); MEAN CORPUSCULAR HGB CONC 30.2 g/dL (31-35); MEAN CORPUSCULAR VOLUME 86.1 fL (81-99); MONOCYTES # (AUTO) 0.3 (0.2-0.8); MONOCYTES % 1.3 % (4.4-11.3); NEUTROPHILS # (AUTO) 18.3 (2.1-6.9); NEUTROPHILS % 93.3 % (38.7-80.0); PLATELET COUNT 137 x10e3/uL (140-360); RED BLOOD COUNT 4.54 x10e6/uL (3.6-5.1); RED CELL DISTRIBUTION WIDTH 15.1 % (11.7-14.4)
[2020-12-26] MEDS: INSULIN LISPRO 100 UNIT/1 ML 3ML VIAL SQ SCH ×4 (06:47→17:02)
[2020-12-26 06:59] LABS: ALBUMIN 1.3 g/dL (3.5-5.0); ALBUMIN/GLOBULIN RATIO 0.3 (0.8-2.0); ANION GAP 14.7 mmol/L (8-16); CALCIUM 7.6 mg/dL (8.4-10.2); CREATININE, SERUM 0.55 mg/dL (0.57-1.11); POTASSIUM 4.7 mmol/L (3.5-5.1)
[2020-12-26 08:18] LABS: ABG HCO3 30 mmol/L (22-26); ABG PCO2 56 mmHg (35-45); ABG PH 7.34 (7.35-7.45); ABG PO2 75 mmHg (80-105); ABG TCO2 32
[2020-12-26] MEDS: DEXAMETHASONE 4 MG TAB PO SCH (08:34)
[2020-12-26] MEDS: LOSARTAN POTASSIUM 25 MG TAB PO SCH (08:36)
[2020-12-26] MEDS: VENLAFAXINE HCL 37.5 MG TAB PO SCH ×2 (08:36→16:59)
[2020-12-26] MEDS: ENOXAPARIN 30 MG/0.3 ML SYR SC SCH (08:36)
[2020-12-26] MEDS: ZINC SULFATE 220 MG CAP PO SCH (08:36)
[2020-12-26] MEDS: ASCORBIC ACID 500 MG TAB PO SCH ×2 (08:36→16:59)
[2020-12-26] MEDS ORDERED: SODIUM CHLORIDE 0.9% 100 ML ONE (08:42)
[2020-12-26] MEDS: MIDAZOLAM HCL 5MG/ML 10ML VIAL 100 ML IV PRN ×2 (13:02→22:14)
[2020-12-27] VITALS (26 sets, daily range): BP systolic 87–144; BP diastolic 6–78
[2020-12-27] MEDS: INSULIN LISPRO 100 UNIT/1 ML 3ML VIAL SQ SCH ×4 (01:01→17:48)
[2020-12-27] MEDS: ROCURONIUM 1250MG/NS 250 250 ML IV SCH ×2 (01:10→18:42)
[2020-12-27] MEDS: PIPERACILLIN/TAZOBACTAM 4.5 GM in SODIUM CHLORIDE 0.9% 100 ML IV SCH ×2 (02:03→08:59)
[2020-12-27] MEDS: FENTANYL 2000MCG/NS 250 250 ML IV SCH ×2 (06:04→17:52)
[2020-12-27 06:17] LABS: BASOPHILS % 0.1 % (0.0-1.0); HEMATOCRIT 30.3 % (34.2-44.1); HEMOGLOBIN 9.5 g/dL (12.0-16.0); LYMPHOCYTES # (AUTO) 0.3 (1.0-3.2); LYMPHOCYTES % 2.2 % (18.0-39.1); MEAN CORPUSCULAR HEMOGLOBIN 25.6 pg (28-32); MEAN CORPUSCULAR HGB CONC 31.4 g/dL (31-35); MEAN CORPUSCULAR VOLUME 81.7 fL (81-99); MONOCYTES # (AUTO) 0.2 (0.2-0.8); MONOCYTES % 1.3 % (4.4-11.3); NEUTROPHILS # (AUTO) 12.7 (2.1-6.9); NEUTROPHILS % 95.3 % (38.7-80.0); PLATELET COUNT 150 x10e3/uL (140-360); RED BLOOD COUNT 3.71 x10e6/uL (3.6-5.1); RED CELL DISTRIBUTION WIDTH 15.4 % (11.7-14.4)
[2020-12-27 06:53] LABS: ALBUMIN/GLOBULIN RATIO 0.3 (0.8-2.0); ANION GAP 13.2 mmol/L (8-16); CALCIUM 7.7 mg/dL (8.4-10.2); CREATININE, SERUM 0.56 mg/dL (0.57-1.11); POTASSIUM 4.2 mmol/L (3.5-5.1)
[2020-12-27 08:36] LABS: ABG HCO3 30 mmol/L (22-26); ABG PCO2 56 mmHg (35-45); ABG PH 7.34 (7.35-7.45); ABG PO2 97 mmHg (80-105); ABG TCO2 31
[2020-12-27] MEDS: LOSARTAN POTASSIUM 25 MG TAB PO SCH (08:59)
[2020-12-27] MEDS: ASCORBIC ACID 500 MG TAB PO SCH ×2 (08:59→17:20)
[2020-12-27] MEDS: ZINC SULFATE 220 MG CAP PO SCH (08:59)
[2020-12-27] MEDS: VENLAFAXINE HCL 37.5 MG TAB PO SCH ×2 (08:59→17:20)
[2020-12-27] MEDS: MIDAZOLAM HCL 5MG/ML 10ML VIAL 100 ML IV PRN (15:03)
[2020-12-27] MEDS ORDERED: ENOXAPARIN SOD INJ 40 MG/0.4 ML SYR SC ONE (15:50)
[2020-12-27 16:00] LABS: ABG HCO3 31 mmol/L (22-26); ABG PCO2 56 mmHg (35-45); ABG PH 7.35 (7.35-7.45); ABG PO2 134 mmHg (80-105); ABG TCO2 32
[2020-12-27] MEDS ORDERED: SODIUM CHLORIDE 0.9% 1000ML 1,000 ML IV ONE (18:30)
[2020-12-28] VITALS (23 sets, daily range): BP systolic 100–153; BP diastolic 52–85
[2020-12-28] MEDS: INSULIN LISPRO 100 UNIT/1 ML 3ML VIAL SQ SCH ×5 (00:36→21:58)
[2020-12-28] MEDS: ROCURONIUM 1250MG/NS 250 250 ML IV SCH (06:30)
[2020-12-28] MEDS: FENTANYL 2000MCG/NS 250 250 ML IV SCH ×2 (06:50→18:17)
[2020-12-28] MEDS: MIDAZOLAM HCL 5MG/ML 10ML VIAL 100 ML IV PRN ×2 (06:56→18:17)
[2020-12-28] MEDS: LOSARTAN POTASSIUM 25 MG TAB PO SCH (08:11)
[2020-12-28] MEDS: ASCORBIC ACID 500 MG TAB PO SCH ×2 (08:16→16:41)
[2020-12-28] MEDS: VENLAFAXINE HCL 37.5 MG TAB PO SCH ×2 (08:16→16:41)
[2020-12-28] MEDS: ZINC SULFATE 220 MG CAP PO SCH (08:16)
[2020-12-28 08:45] LABS: BASOPHILS % 0.2 % (0.0-1.0); EOSINOPHILS # (AUTO) 0.1 (0.0-0.4); EOSINOPHILS % 0.6 % (0.0-6.0); HEMATOCRIT 30.1 % (34.2-44.1); LYMPHOCYTES # (AUTO) 0.6 (1.0-3.2); LYMPHOCYTES % 5.2 % (18.0-39.1); MEAN CORPUSCULAR HEMOGLOBIN 25.4 pg (28-32); MEAN CORPUSCULAR HGB CONC 29.9 g/dL (31-35); MONOCYTES # (AUTO) 0.4 (0.2-0.8); MONOCYTES % 3.1 % (4.4-11.3); NEUTROPHILS % 89.3 % (38.7-80.0); PLATELET COUNT 108 x10e3/uL (140-360); RED BLOOD COUNT 3.54 x10e6/uL (3.6-5.1)
[2020-12-28] MEDS ORDERED: DEXTROSE 50% SYRINGE 50 ML IV PRN (09:00)
[2020-12-28 09:10] LABS: ALBUMIN 1.1 g/dL (3.5-5.0); ALBUMIN/GLOBULIN RATIO 0.3 (0.8-2.0); ANION GAP 14.1 mmol/L (8-16); CALCIUM 7.7 mg/dL (8.4-10.2); CREATININE, SERUM 0.58 mg/dL (0.57-1.11); POTASSIUM 5.1 mmol/L (3.5-5.1)
[2020-12-28 10:10] LABS: ABG HCO3 31 mmol/L (22-26); ABG PCO2 60 mmHg (35-45); ABG PH 7.33 (7.35-7.45); ABG PO2 98 mmHg (80-105); ABG TCO2 33
[2020-12-28] MEDS ORDERED: ENOXAPARIN SOD INJ 40 MG/0.4 ML SYR SC SCH (17:00)
[2020-12-29] VITALS (24 sets, daily range): BP systolic 94–172; BP diastolic 50–80
[2020-12-29] MEDS: LABETALOL HCL 5 MG/ML 20ML VIAL IV PRN ×2 (00:03→15:48)
[2020-12-29] MEDS: INSULIN LISPRO 100 UNIT/1 ML 3ML VIAL SQ SCH ×3 (05:43→22:29)
[2020-12-29] MEDS: ROCURONIUM 1250MG/NS 250 250 ML IV SCH ×2 (06:30→08:23)
[2020-12-29 06:54] LABS: BASOPHILS % 0.2 % (0.0-1.0); EOSINOPHILS # (AUTO) 0.1 (0.0-0.4); EOSINOPHILS % 0.7 % (0.0-6.0); HEMATOCRIT 31.4 % (34.2-44.1); HEMOGLOBIN 9.9 g/dL (12.0-16.0); LYMPHOCYTES # (AUTO) 0.3 (1.0-3.2); LYMPHOCYTES % 2.6 % (18.0-39.1); MEAN CORPUSCULAR HEMOGLOBIN 27.3 pg (28-32); MEAN CORPUSCULAR HGB CONC 31.5 g/dL (31-35); MEAN CORPUSCULAR VOLUME 86.5 fL (81-99); MONOCYTES # (AUTO) 0.3 (0.2-0.8); MONOCYTES % 2.6 % (4.4-11.3); NEUTROPHILS # (AUTO) 9.5 (2.1-6.9); NEUTROPHILS % 92.8 % (38.7-80.0); PLATELET COUNT 93 x10e3/uL (140-360); RED BLOOD COUNT 3.63 x10e6/uL (3.6-5.1); RED CELL DISTRIBUTION WIDTH 16.6 % (11.7-14.4)
[2020-12-29 07:47] LABS: ALBUMIN 1.2 g/dL (3.5-5.0); ALBUMIN/GLOBULIN RATIO 0.3 (0.8-2.0); ANION GAP 13.5 mmol/L (8-16); CREATININE, SERUM 0.53 mg/dL (0.57-1.11); POTASSIUM 5.5 mmol/L (3.5-5.1)
[2020-12-29 07:53] LABS: CALCIUM 6.8 mg/dL (8.4-10.2)
[2020-12-29] MEDS: VENLAFAXINE HCL 37.5 MG TAB PO SCH ×2 (08:22→16:47)
[2020-12-29] MEDS: LOSARTAN POTASSIUM 25 MG TAB PO SCH (08:22)
[2020-12-29] MEDS: ASCORBIC ACID 500 MG TAB PO SCH ×2 (08:23→16:47)
[2020-12-29] MEDS: ZINC SULFATE 220 MG CAP PO SCH (08:23)
[2020-12-29] MEDS: FONDAPARINUX SODIUM 5 MG/0.4 ML SYRINGE SQ SCH (08:44)
[2020-12-29] MEDS: FENTANYL 2000MCG/NS 250 250 ML IV SCH ×2 (10:37→16:45)
[2020-12-29] MEDS ORDERED: CISATRACURIUM BESYLATE 100 MG in SODIUM CHLORIDE 0.9% 100 ML 100 ML IV PRN (16:30)
[2020-12-29] MEDS ORDERED: PROPOFOL IV EMULSION 10MG/ML 100 ML IV PRN (16:30)
[2020-12-29] MEDS: MIDAZOLAM HCL 5MG/ML 10ML VIAL 100 ML IV PRN ×2 (16:45→21:55)
[2020-12-30] VITALS (25 sets, daily range): BP systolic 93–139; BP diastolic 53–71
[2020-12-30] MEDS: MIDAZOLAM HCL 5MG/ML 10ML VIAL 100 ML IV PRN ×5 (03:42→23:28)
[2020-12-30 06:03] LABS: BASOPHILS % 0.3 % (0.0-1.0); EOSINOPHILS # (AUTO) 0.1 (0.0-0.4); EOSINOPHILS % 0.9 % (0.0-6.0); HEMATOCRIT 30.8 % (34.2-44.1); HEMOGLOBIN 9.4 g/dL (12.0-16.0); LYMPHOCYTES # (AUTO) 0.6 (1.0-3.2); LYMPHOCYTES % 5.7 % (18.0-39.1); MEAN CORPUSCULAR HEMOGLOBIN 26.2 pg (28-32); MEAN CORPUSCULAR HGB CONC 30.5 g/dL (31-35); MEAN CORPUSCULAR VOLUME 85.8 fL (81-99); MONOCYTES # (AUTO) 0.3 (0.2-0.8); MONOCYTES % 3.2 % (4.4-11.3); NEUTROPHILS # (AUTO) 9.2 (2.1-6.9); NEUTROPHILS % 88.7 % (38.7-80.0); PLATELET COUNT 89 x10e3/uL (140-360); RED BLOOD COUNT 3.59 x10e6/uL (3.6-5.1)
[2020-12-30 06:24] LABS: ALBUMIN 1.1 g/dL (3.5-5.0); ALBUMIN/GLOBULIN RATIO 0.3 (0.8-2.0); ANION GAP 10.3 mmol/L (8-16); CALCIUM 7.8 mg/dL (8.4-10.2); CREATININE, SERUM 0.56 mg/dL (0.57-1.11); POTASSIUM 5.3 mmol/L (3.5-5.1)
[2020-12-30] MEDS: INSULIN LISPRO 100 UNIT/1 ML 3ML VIAL SQ SCH ×3 (06:39→22:24)
[2020-12-30] MEDS: LOSARTAN POTASSIUM 25 MG TAB PO SCH (07:59)
[2020-12-30] MEDS: ASCORBIC ACID 500 MG TAB PO SCH ×2 (08:00→16:26)
[2020-12-30] MEDS: ZINC SULFATE 220 MG CAP PO SCH (08:00)
[2020-12-30] MEDS: VENLAFAXINE HCL 37.5 MG TAB PO SCH ×2 (08:00→16:26)
[2020-12-30] MEDS: FONDAPARINUX SODIUM 5 MG/0.4 ML SYRINGE SQ SCH (08:00)
[2020-12-30 08:48] LABS: ABG PH 7.27 (7.35-7.45)
[2020-12-30 08:50] LABS: ABG PCO2 81 mmHg (35-45)
[2020-12-30] MEDS: FENTANYL 2000MCG/NS 250 250 ML IV SCH ×3 (08:50→22:58)
[2020-12-30 08:52] LABS: ABG HCO3 38 mmol/L (22-26); ABG PO2 63 mmHg (80-105); ABG TCO2 40
[2020-12-30] MEDS ORDERED: SOD POLYSTYRENE SULFONATE SUSP 15 GM/60 ML BTL PO ONE (10:30)
[2020-12-30] MEDS ORDERED: LACTULOSE SYRUP 20 GM/30 ML UDC NG ONE (10:30)
[2020-12-30] MEDS: ACETAMINOPHEN 325 MG TAB PO PRN (23:14)
[2020-12-31] VITALS (25 sets, daily range): BP systolic 83–136; BP diastolic 49–66
[2020-12-31] MEDS: NOREPINEPHRINE 8 MG/D5W 250 ML 250 ML IV PRN (02:30)
[2020-12-31] MEDS: MIDAZOLAM HCL 5MG/ML 10ML VIAL 100 ML IV PRN ×4 (04:33→21:10)
[2020-12-31] MEDS: FENTANYL 2000MCG/NS 250 250 ML IV SCH ×3 (05:41→17:18)
[2020-12-31] MEDS: INSULIN LISPRO 100 UNIT/1 ML 3ML VIAL SQ SCH ×3 (06:33→22:00)
[2020-12-31 06:58] LABS: BASOPHILS % 0.3 % (0.0-1.0); EOSINOPHILS # (AUTO) 0.2 (0.0-0.4); EOSINOPHILS % 1.7 % (0.0-6.0); HEMATOCRIT 28.4 % (34.2-44.1); HEMOGLOBIN 8.7 g/dL (12.0-16.0); LYMPHOCYTES % 9.2 % (18.0-39.1); MEAN CORPUSCULAR HEMOGLOBIN 26.9 pg (28-32); MEAN CORPUSCULAR HGB CONC 30.6 g/dL (31-35); MEAN CORPUSCULAR VOLUME 87.7 fL (81-99); MONOCYTES # (AUTO) 0.5 (0.2-0.8); MONOCYTES % 4.4 % (4.4-11.3); NEUTROPHILS # (AUTO) 8.7 (2.1-6.9); NEUTROPHILS % 82.4 % (38.7-80.0); PLATELET COUNT 106 x10e3/uL (140-360); RED BLOOD COUNT 3.24 x10e6/uL (3.6-5.1); RED CELL DISTRIBUTION WIDTH 16.2 % (11.7-14.4)
[2020-12-31 08:51] LABS: ANION GAP 11.6 mmol/L (8-16); CALCIUM 8.1 mg/dL (8.4-10.2); CREATININE, SERUM 0.68 mg/dL (0.57-1.11); POTASSIUM 5.6 mmol/L (3.5-5.1)
[2020-12-31] MEDS: VENLAFAXINE HCL 37.5 MG TAB PO SCH ×2 (08:56→17:13)
[2020-12-31] MEDS: ZINC SULFATE 220 MG CAP PO SCH (08:57)
[2020-12-31] MEDS: ASCORBIC ACID 500 MG TAB PO SCH ×2 (08:57→17:13)
[2020-12-31] MEDS ORDERED: CLONIDINE HCL 0.1 MG/24 HR 1 EA PATCH TOP NR (09:00)
[2020-12-31] MEDS: FONDAPARINUX SODIUM 5 MG/0.4 ML SYRINGE SQ SCH (09:01)
[2020-12-31] MEDS ORDERED: SOD POLYSTYRENE SULFONATE SUSP 15 GM/60 ML BTL PO PRN (17:45)
[2020-12-31] MEDS ORDERED: LACTULOSE SYRUP 20 GM/30 ML UDC PO PRN (17:45)
[2021-01-01] VITALS (14 sets, daily range): BP systolic 82–110; BP diastolic 46–61
[2021-01-01] MEDS: FENTANYL 2000MCG/NS 250 250 ML IV SCH ×3 (02:25→16:10)
[2021-01-01] MEDS: MIDAZOLAM HCL 5MG/ML 10ML VIAL 100 ML IV PRN ×2 (02:26→07:32)
[2021-01-01] MEDS: INSULIN LISPRO 100 UNIT/1 ML 3ML VIAL SQ SCH ×2 (06:03→13:36)
[2021-01-01 06:13] LABS: BASOPHILS % 0.2 % (0.0-1.0); EOSINOPHILS # (AUTO) 0.2 (0.0-0.4); EOSINOPHILS % 1.8 % (0.0-6.0); HEMATOCRIT 28.5 % (34.2-44.1); LYMPHOCYTES # (AUTO) 0.8 (1.0-3.2); LYMPHOCYTES % 8.9 % (18.0-39.1); MEAN CORPUSCULAR HEMOGLOBIN 27.7 pg (28-32); MEAN CORPUSCULAR HGB CONC 31.6 g/dL (31-35); MEAN CORPUSCULAR VOLUME 87.7 fL (81-99); MONOCYTES # (AUTO) 0.3 (0.2-0.8); MONOCYTES % 4.1 % (4.4-11.3); NEUTROPHILS % 83.5 % (38.7-80.0); PLATELET COUNT 120 x10e3/uL (140-360); RED BLOOD COUNT 3.25 x10e6/uL (3.6-5.1); RED CELL DISTRIBUTION WIDTH 16.5 % (11.7-14.4)
[2021-01-01 06:32] LABS: ANION GAP 11.8 mmol/L (8-16); CREATININE, SERUM 0.62 mg/dL (0.57-1.11); POTASSIUM 5.8 mmol/L (3.5-5.1)
[2021-01-01 07:34] LABS: BAND NEUTROPHILS % (MANUAL) 5 %; LYMPHOCYTES % (MANUAL) 7 % (19-48); MONOCYTES % (MANUAL) 4 % (3.4-9.0); NEUTROPHILS % (MANUAL) 84 % (40-74); NUCLEATED RED BLOOD CELLS 1; PLATELET ESTIMATE SLIGHTLY DECREASED
[2021-01-01 07:35] LABS: PLATELET MORPHOLOGY COMMENT FEW LARGE; RBC MORPHOLOGY COMMENT NORMAL
[2021-01-01] MEDS: ASCORBIC ACID 500 MG TAB PO SCH ×2 (08:30→16:08)
[2021-01-01] MEDS: ZINC SULFATE 220 MG CAP PO SCH (08:30)
[2021-01-01] MEDS: VENLAFAXINE HCL 37.5 MG TAB PO SCH ×2 (08:30→16:08)
[2021-01-01] MEDS: FONDAPARINUX SODIUM 5 MG/0.4 ML SYRINGE SQ SCH (08:36)
[2021-01-01] MEDS: ACETAMINOPHEN 325 MG TAB PO PRN (09:32)
[2021-01-01] MEDS ORDERED: SODIUM CHLORIDE 0.9% 1000ML 1,000 ML ONE (09:56)
[2021-01-01] MEDS ORDERED: SOD POLYSTYRENE SULFONATE SUSP 15 GM/60 ML BTL PO PRN (10:00)
[2021-01-01] MEDS ORDERED: SODIUM CHLORIDE 0.9% 250ML 250 ML IV SCH (10:00)
[2021-01-01] MEDS ORDERED: SOD POLYSTYRENE SULFONATE SUSP 15 GM/60 ML BTL PR ONE (10:30)
[2021-01-01] MEDS ORDERED: SODIUM CHLORIDE 0.9% 250ML 250 ML IV ONE (10:30)
[2021-01-01 11:00] LABS: ABG HCO3 34 mmol/L (22-26); ABG PCO2 68 mmHg (35-45); ABG PH 7.31 (7.35-7.45); ABG PO2 75 mmHg (80-105); ABG TCO2 36
[2021-01-01] MEDS: NOREPINEPHRINE 8 MG/D5W 250 ML 250 ML IV PRN (14:10)
[2021-01-01] MEDS ORDERED: CEFEPIME 1 GM in SODIUM CHLORIDE 0.9% 50ML 50 ML IV SCH (14:30)
[2021-01-01] MEDS ORDERED: Vancomycin IV 1.25 GM in SODIUM CHLORIDE 0.9% 250ML 250 ML IV SCH (15:00)
[2021-01-01] MEDS ORDERED: VECURONIUM BROMIDE FOR INJ 20 MG VIAL IV STA (15:27)
[2021-01-01] MEDS ORDERED: ROCURONIUM 1250MG/NS 250 250 ML ONE (15:39)
[2021-01-01] MEDS ORDERED: INSULIN GLARGINE 100 UNITS/ML VIAL SQ SCH (21:00)
[2021-01-02] MEDS ORDERED: SODIUM CHLORIDE 0.9% 250ML 250 ML IV ONE (10:00)
== END 2021-01-01 22:55 | disposition expired | DRG 207 ==
LOC: FSED 09:05 → ERHOLD 10:34 → MED/SURG3 16:10 → ICU 12-22 16:16 → COVIDICU 12-25 10:19 → IMCU 01-01 18:00
PROVIDERS: ADMIT Internal Medicine; ATTEND Internal Medicine
PROC: 3E0333Z Introduction of Anti-inflammatory into Peripheral Vein, Percutaneous Approach (ICD-10-PCS; 2020-12-11)
PROC: XW033E5 Introduction of Remdesivir Anti-infective into Peripheral Vein, Percutaneous Approach, New Technology Group 5 (ICD-10-PCS; 2020-12-11)
PROC: 02HV33Z Insertion of Infusion Device into Superior Vena Cava, Percutaneous Approach (ICD-10-PCS; 2020-12-19)
PROC: 5A09457 Assistance with Respiratory Ventilation, 24-96 Consecutive Hours, Continuous Positive Airway Pressure (ICD-10-PCS; 2020-12-22)
PROC: 0BH17EZ Insertion of Endotracheal Airway into Trachea, Via Natural or Artificial Opening (ICD-10-PCS; principal; 2020-12-25)
PROC: 5A1955Z Respiratory Ventilation, Greater than 96 Consecutive Hours (ICD-10-PCS; 2020-12-25)
PROC: 3E043XZ Introduction of Vasopressor into Central Vein, Percutaneous Approach (ICD-10-PCS; 2020-12-25)
PROC: 5A12012 Performance of Cardiac Output, Single, Manual (ICD-10-PCS; 2021-01-01)
DX: U07.1 COVID-19 (principal); J12.82 Pneumonia due to coronavirus disease 2019; J96.01 Acute respiratory failure with hypoxia; G93.41 Metabolic encephalopathy; J69.0 Pneumonitis due to inhalation of food and vomit; A41.89 Other specified sepsis; N17.9 Acute kidney failure, unspecified; I10 Essential (primary) hypertension; E66.3 Overweight; Z68.28 Body mass index [BMI] 28.0-28.9, adult; Z86.73 Personal history of transient ischemic attack (TIA), and cerebral infarction without residual deficits; Z91.19 Patient's noncompliance with other medical treatment and regimen; F32.9 Major depressive disorder, single episode, unspecified; R53.81 Other malaise; E11.649 Type 2 diabetes mellitus with hypoglycemia without coma; E11.65 Type 2 diabetes mellitus with hyperglycemia; T38.0X5A Adverse effect of glucocorticoids and synthetic analogues, initial encounter; E87.5 Hyperkalemia; D69.6 Thrombocytopenia, unspecified
CPT/HCPCS: 36415; 36569; 36600; 71045; 71260; 80048; 80053; 80076; 81003; 82728; 82805; 82948; 83615; 83735; 84100; 84132; 85025; 85379; 86022; 86140; 87040; 92950; 94002; 94003; 94660; 96360; 96365; 96366; 96372; 99251; 99284; J0330; J0456; J0692; J0696; J1100; J1650; J1815; J1817; J1940; J2060; J2250; J2405; J2543; J2997; J3370; J7030; J7042; J7050; J7799; Q9967; U0002